=== PATIENT | male | born 1960 | race Caucasian/White ===

== ENCOUNTER 2023-05-03 06:18 | Day surgery (SDC) | payer BC ==
[2023-05-01 14:07] VITALS: BMI 37.5
[2023-05-03] MEDS ORDERED: oxyCODONE HCL 5 MG TABLET PO PRN ×2 (07:29)
[2023-05-03] MEDS ORDERED: ACETAMINOPHEN 325 MG TABLET (FP) PO PRN (07:29)
[2023-05-03] MEDS ORDERED: ONDANSETRON 4 MG/2 ML VIAL IVPUSH PRN (07:29)
[2023-05-03] MEDS ORDERED: LACTATED RINGERS SOLUTION 1,000 ML IV SCH (07:30)
[2023-05-03] MEDS ORDERED: DEXAMETHASONE SOD PHOSPHATE/PF 10 MG/ML SDV ONE (07:31)
[2023-05-03] MEDS ORDERED: BUPIVACAINE HCL/PF 0.5% (5 MG/ML) 30 ML VIAL IJ ONE (07:31)
[2023-05-03] MEDS ORDERED: ACETAMINOPHEN INJECTION 100 ML IVPB ONE (07:31)
[2023-05-03] MEDS ORDERED: MIDAZOLAM HCL 2 MG/2 ML SINGLE DOSE VIAL ONE ×2 (07:31→08:02)
[2023-05-03] MEDS ORDERED: BUPIVACAINE HCL/EPINEPHRINE/PF 30 ML VIAL IJ ONE (07:33)
[2023-05-03] MEDS ORDERED: EPINEPHrine 1:1,000 1,000 MCG/ML ML ONE (07:34)
[2023-05-03] MEDS ORDERED: PROPOFOL 20 ML ONE ×3 (08:03→09:08)
[2023-05-03] MEDS ORDERED: KETOROLAC TROMETHAMINE 30 MG/1 ML VIAL ONE (08:30)
[2023-05-03] MEDS ORDERED: ONDANSETRON 4 MG/2 ML VIAL ONE (08:30)
[2023-05-03] MEDS ORDERED: DEXAMETHASONE SOD PHOSPHATE 4 MG/1 ML VIAL ONE (08:30)
[2023-05-03 10:45] VITALS: RESP 16
[2023-05-03 12:38] VITALS: BP 123/70; PULSE 71; TEMP 97.1
== END 2023-05-03 11:55 | disposition home or self-care (01) ==
LOC: FASU 06:18
PROVIDERS: ATTEND Orthopaedic Surgery
PROC: 0RNK4ZZ Release Left Shoulder Joint, Percutaneous Endoscopic Approach (ICD-10-PCS; principal; 2023-05-03 08:26)
DX: S46.012A Strain of muscle(s) and tendon(s) of the rotator cuff of left shoulder, initial encounter (principal); X58.XXXA Exposure to other specified factors, initial encounter; Y93.9 Activity, unspecified; Y92.9 Unspecified place or not applicable
CPT/HCPCS: 94760; C1713; J0131

== ENCOUNTER 2024-04-10 06:18 | Day surgery (SDC) | payer BC ==
[2024-04-10 07:02] VITALS: BMI 39.6
[2024-04-10] MEDS ORDERED: MIDAZOLAM HCL 2 MG/2 ML SINGLE DOSE VIAL ONE ×2 (07:15→09:00)
[2024-04-10] MEDS ORDERED: PROPOFOL 20 ML ONE ×5 (07:15→10:00)
[2024-04-10] MEDS ORDERED: TRANEXAMIC ACID 1000 MG/10 ML VIAL ONE ×3 (07:20→09:49)
[2024-04-10] MEDS ORDERED: ceFAZolin SODIUM 1 GM VIAL ONE (07:20)
[2024-04-10] MEDS ORDERED: DEXAMETHASONE SOD PHOSPHATE 10 MG/1 ML VIAL ONE (07:41)
[2024-04-10] MEDS ORDERED: ACETAMINOPHEN INJECTION 100 ML ONE (07:41)
[2024-04-10] MEDS ORDERED: BUPIVACAINE HCL/PF 0.5% (5 MG/ML) 30 ML VIAL IJ ONE (07:41)
[2024-04-10] MEDS ORDERED: BUPIVACAINE HCL/PF 0.5% (5MG/ML) 10 ML VIAL ONE (07:56)
[2024-04-10] MEDS ORDERED: ONDANSETRON 4 MG/2 ML VIAL ONE (09:25)
[2024-04-10] MEDS ORDERED: DEXAMETHASONE SOD PHOSPHATE 4 MG/1 ML VIAL ONE (09:25)
[2024-04-10] MEDS ORDERED: KETOROLAC TROMETHAMINE 30 MG/1 ML VIAL ONE (09:25)
[2024-04-10] MEDS ORDERED: MAGNESIUM HYDROX 2400MG/30ML ORAL SUSPENSION 30 ML CUP PO PRN (11:04)
[2024-04-10] MEDS ORDERED: ONDANSETRON 4 MG/2 ML VIAL IVPUSH PRN ×2 (11:04→11:07)
[2024-04-10] MEDS ORDERED: MAG HYDROX/AL HYDROX/SIMETH 30 ML UNIT-DOSE CUP PO PRN (11:04)
[2024-04-10] MEDS ORDERED: ACETAMINOPHEN 325 MG TABLET (FP) PO PRN (11:07)
[2024-04-10] MEDS ORDERED: oxyCODONE HCL 5 MG TABLET PO PRN (11:07)
[2024-04-10] MEDS: CEFAZOLIN 2 GM in DEXTROSE 5%-WATER - 100 ML IVPB ONE (13:17)
[2024-04-10] MEDS: IPRATROPIUM/ALBUTEROL (COMBIVENT) RESPIMAT 20-100 MCG IH PRN (15:02)
[2024-04-10] MEDS: CEFAZOLIN SODIUM 3 GM in DEXTROSE 5%-WATER 100 ML IVPB SCH (16:14)
[2024-04-10] MEDS: LACTATED RINGERS SOLUTION 1,000 ML IV SCH (16:25)
[2024-04-10] MEDS: oxyCODONE HCL 5 MG TABLET PO PRN (16:32)
[2024-04-10] MEDS: ACETAMINOPHEN 1000 MG/100 ML BAG IVPB SCH (17:32)
[2024-04-10] MEDS: TRANEXAMIC ACID - 1,000 MG in SODIUM CHLORIDE 50 ML IVPB ONE (18:58)
[2024-04-10] MEDS: DEXAMETHASONE 4 MG TABLET (FP) PO ONE (18:58)
[2024-04-10] MEDS ORDERED: TRANEXAMIC ACID 1000 MG/10 ML VIAL IVPUSH ONE (19:00)
[2024-04-10] MEDS: LOSARTAN 50MG/HCTZ 12.5MG 1 TAB PO SCH (21:03)
[2024-04-10] MEDS: FAMOTIDINE 20 MG TABLET PO SCH (21:04)
[2024-04-10] MEDS: ASPIRIN 81 MG CHEWABLE TABLETS PO SCH (21:04)
[2024-04-10] MEDS: SENNOSIDES/DOCUSATE COMBO (SENNA PLUS) TABLET (UD) PO SCH (21:04)
[2024-04-10] MEDS: ASCORBIC ACID 500 MG TABLET (FP) PO SCH (21:04)
[2024-04-10] MEDS ORDERED: PATIENT'S OWN MEDICATION (NON-FORMULARY) (Losartan/Hydrochlorothiazide [Losartan-Hctz 100- PO SCH (22:00)
[2024-04-11] MEDS ORDERED: DEXAMETHASONE 4 MG TABLET (FP) PO ONE (10:00)
[2024-04-11] MEDS ORDERED: TRANEXAMIC ACID 1000 MG/10 ML VIAL IVPUSH ONE (10:00)
[2024-04-11] MEDS: TRANEXAMIC ACID - 1,000 MG in SODIUM CHLORIDE 50 ML IVPB ONE (10:14)
[2024-04-11 10:15] VITALS: BP 138/76; PULSE 89; RESP 18; TEMP 99.1
[2024-04-11] MEDS: MULTIVITAMINS (DAILY MVI) TABLET (FP) PO SCH (10:18)
[2024-04-11] MEDS: CHOLECALCIFEROL (VIT D3) 1,000 UNIT (25 MCG) TABLET PO SCH (10:18)
[2024-04-11] MEDS: DEXAMETHASONE 4 MG TABLET (FP) PO SCH (10:18)
[2024-04-11] MEDS: ACETAMINOPHEN 500 MG TABLET (FP) PO SCH (10:19)
[2024-04-11] MEDS: ALLOPURINOL 100 MG TABLET (FP) PO SCH (10:19)
[2024-04-11] MEDS: CELECOXIB 200 MG CAPSULE PO SCH (10:19)
== END 2024-04-11 11:06 | disposition home or self-care (01) ==
LOC: FASUSAT 06:18 → FASU 06:18 → FM/S 12:12 → FASUSAT 04-11 11:06
PROVIDERS: ATTEND Orthopaedic Surgery
PROC: 0SRD0J9 Replacement of Left Knee Joint with Synthetic Substitute, Cemented, Open Approach (ICD-10-PCS; principal; 2024-04-10 09:00)
DX: M17.12 Unilateral primary osteoarthritis, left knee (principal)
CPT/HCPCS: 27447; C1776; 73560-TC-LT-FY; 97010-GP; 97116-GP; 97162-GP; J0131; J1100; J3535